=== PATIENT | male | born 1965 | race Hispanic/Latino ===

== ENCOUNTER 2024-06-27 10:48 | Inpatient (IN) | payer MEDICAID, SELFPAY ==
[2024-06-27] MEDS ORDERED: CEFEPIME 2 GM VIAL ONE (11:33)
[2024-06-27] MEDS ORDERED: VANCOMYCIN 1 GM/VIAL ONE (11:33)
[2024-06-27] MEDS ORDERED: NA CHLORIDE 0.9% 0 ML ONE (11:34)
[2024-06-27] MEDS ORDERED: NA CHLORIDE 0.9% 100 ML ONE (11:34)
[2024-06-27 11:54] LABS: Absolute Basophils 0.1 K/uL (0-0.5); Absolute Lymphocytes (CBC) 0.7 K/uL (0.7-4.9); Absolute Monocytes 1.3 K/uL (0.1-1.3); Absolute Neutrophil 27.9 K/uL (1.8-8.0); Basophils % 0.3 % (0-1.3); Hematocrit 41.2 % (39.6-49.0); Hemoglobin 13.1 g/dL (13.6-17.9); Lymphocytes % 2.3 % (15.3-44.8); MCH 31.6 pg (27.0-35.0); MCHC 31.8 g/dL (32.0-36.0); MCV 99.3 fL (80-100); MPV 9.3 fL (7.6-11.3); Monocytes % 4.3 % (3.3-12.3); Neutrophils % 93.1 % (41.7-73.7); Platelets 447 thou/uL (152-406); RBC Red Blood Cell Count 4.15 M/uL (4.33-5.43); Red Cell Distribution Width 13.1 % (12.1-15.2)
[2024-06-27 12:01] LABS: Albumin 2.9 g/dL (3.4-5.0); Albumin/Globulin Ratio 0.6 (1.1-1.8); Bilirubin Total 0.6 mg/dL (0.2-1.0); Globulin 4.9 g/dL (2.3-3.5); Protein, Total 7.8 g/dL (6.4-8.2)
[2024-06-27 12:08] LABS: PT Prothrombin Time 14.5 SECONDS (9.4-12.5); PTT, Activated Partial Thromb 35.2 SECONDS (24.3-36.9); Protime INR 1.3
[2024-06-27] MEDS ORDERED: NA CHLORIDE 0.9% 1,000 ML ONE (12:13)
--- NOTE | 2024-06-27 12:51 | RAD REPORT ---
EXAM DESCRIPTION: RAD - Foot Right 3 View - 06/27/2024 12:42 pm CLINICAL HISTORY: r 1st toe gangrene COMPARISON: No comparisons FINDINGS: There is destructive changes involving the proximal phalanx of the great toe as well as th e base of the distal phalanx. This is most compatible with osteomyelitis. There is significant soft t issue swelling. Small calcaneal spurs. There is also fracture with bony destruction involving the bas e of the proximal phalanx of the second toe.
--- NOTE | 2024-06-27 13:18 | ER ---
Nurse's Notes [facility] Name: Bimal Arreguin Age: 58 yrs Sex: Male : 1965 Arrival Date: 06/27/2024 Time: 10:48 Bed 19 Private MD: Diagnosis: Osteomyelitis of right first toe;Sepsis Presentation: 06/27 11:02 Chief complaint: Right foot wound x 2 months. Coronavirus screen: At this time, the hb client does not indicate any symptoms associated with coronavirus-19. Ebola Screen: No symptoms or risks identified at this time. Initial Sepsis Screen: Does the patient meet any 2 criteria? No. Patient's initial sepsis screen is negative. Does the patient have a suspected source of infection? No. Patient's initial sepsis screen is negative. Risk Assessment: Do you want to hurt yourself or someone else? Patient reports no desire to harm self or others. Onset of symptoms was April 2024. 11:02 Method Of Arrival: Ambulatory hb 11:02 Acuity: JULIAN 2 hb Triage Assessment: 11:21 General: Appears in no apparent distress. Behavior is calm, cooperative. Pain: Pain hb currently is 8 out of 10 on a pain scale. Neuro: Level of Consciousness is awake, alert, obeys commands, Oriented to person, place, time, situation. Cardiovascular: Patient's skin is warm and dry. Respiratory: Respiratory effort is even, unlabored, Respiratory pattern is regular, symmetrical. Derm: Large unstageable wound to right foot and right great toe with area of black extending from mid foot to toe. Very foul odor noted. Historical: - Allergies: 11:20 No Known Allergies; hb - PMHx: 11:20 CVA; Hypertension; hb - Immunization history:: Adult Immunizations up to date. - Infectious Disease History:: Denies. - Social history:: Smoking status: Patient denies any tobacco usage or history of. Screenin:[facility] ED Fall Risk Assessment (Adult) History of falling in the last 3 months, rs5 including since admission No falls in past 3 months (0 pts) Confusion or Disorientation No (0 pts) Intoxicated or Sedated No (0 pts) Impaired Gait Yes (1 pt) Mobility Assist Device Used Yes (1 pt) Altered Elimination No (0 pt) Score/Fall Risk Level 0 - 2 = Low Risk Oriented to surroundings, Maintained a safe environment. Abuse screen: Denies threats or abuse. Nutritional screening: No deficits noted. Tuberculosis screening: No symptoms or risk factors identified. Assessment: 11:01 General: Appears in no apparent distress. uncomfortable, Behavior is calm, cooperative. rs5 Pain: Complains of pain in right toe Pain currently is 3 out of 10 on a pain scale. Quality of pain is described as aching, Is continuous. 11:01 Neuro: Level of Consciousness is awake, alert, obeys commands, Oriented to person, rs5 place, time, situation. Cardiovascular: Patient's skin is warm and dry. Respiratory: Airway is patent Respiratory effort is even, unlabored, Respiratory pattern is regular, symmetrical. GI: Abdomen is round non-distended, Abd is soft and non tender X 4 quads. : No signs and/or symptoms were reported regarding the genitourinary system. EENT: No signs and/or symptoms were reported regarding the EENT system. Derm: Skin is intact, Skin is pink, warm \T\ dry. Derm: wound noted to right big toe, appears gangrenous. Musculoskeletal: Range of motion: limited in right foot. 12:01 Reassessment: Patient and/or family updated on plan of care and expected duration. Pain rs5 level reassessed. Patient is alert, oriented x 3, equal unlabored respirations, skin warm/dry/pink. 13:10 Reassessment: Patient and/or family updated on plan of care and expected duration. Pain rs5 level reassessed. Patient is alert, oriented x 3, equal unlabored respirations, skin warm/dry/pink. 14:15 Reassessment: No changes from previously documented assessment. rs5 15:10 Reassessment: No changes from previously documented assessment. rs5 16:10 Reassessment: No changes from previously documented assessment. rs5 Vital Signs: 11:02 BP 125 / 104; Pulse 110; Resp 18; Temp 98.4(O); Pulse Ox 100% on R/A; Weight 58.97 kg; hb Height 5 ft. 8 in. ; Pain 8/10; 11:48 BP 137 / 76; Pulse 108; Resp 17; Pulse Ox 98% on R/A; rs5 13:10 BP 133 / 76; Pulse 87; Resp 16; Pulse Ox 97% on R/A; rs5 15:10 BP 127 / 75; Pulse 80; Resp 17; Pulse Ox 98% on R/A; rs5 16:15 BP 130 / 78; Pulse 81; Resp 16; Pulse Ox 99% ; rs5 11:02 Body Mass Index 19.77 (58.97 kg, 172.72 cm) hb 11:02 Pain Scale: Adult hb ED Course: 10:52 Patient arrived in ED. ra3 10:52 Ravin East MD is Attending Physician. rt 11:00 Patient has correct armband on for positive identification. Bed in low position. Call rs5 light in reach. Side rails up X2. 11:02 Noe Damian, RN is Primary Nurse. rs5 11:05 No provider procedures requiring assistance completed. Inserted saline lock: 20 gauge rs5 in right antecubital area, using aseptic technique. Blood collected. Flushed with 10 mL NS. 11:20 Triage completed. hb 11:20 Patient placed. hb 11:40 EKG done, by ED staff, reviewed by Ravin East MD. cc6 12:44 Foot Right 3 View XRAY In Process Unspecified. EDMS 13:12 Stanley Tang MD is Hospitalizing Provider. rt 16:20 Patient admitted, IV remains in place. rs5 Administered Medications: 11:46 Drug: Cefepime IVPB 2 grams IVPB at 200 ml/hr once over 30 mins; (mix in NS 100 mL) rs5 Route: IVPB; Rate: 200 ml/hr; Infused Over: 30 mins; Site: right antecubital; 12:01 Follow up: Response: No adverse reaction rs5 11:48 Drug: vancoMYCIN IVPB 1 grams IVPB once over 2 hrs Route: IVPB; Infused Over: 2 hrs; rs5 Site: right antecubital; 12:30 Follow up: Response: No adverse reaction rs5 12:30 Drug: NS 0.9% IV 1000 ml IV at 1 bolus Per protocol; 1000 mL bolus Route: IV; Rate: 1 rs5 bolus; Site: right antecubital; 13:31 Follow up: Response: No adverse reaction; IV Status: Completed infusion; IV Intake: rs5 1000ml Medication: 11:05 VIS not applicable for this client. rs5 Intake: 13:31 IV: 1000ml; Total: 1000ml. rs5 Outcome: 13:17 Decision to Hospitalize by Provider. rt 16:20 Admitted to rs5 16:20 Admitted to Med/surg rs5 16:20 Condition: stable 16:20 Instructed on the need for admit, Demonstrated understanding of instructions, 16:25 Patient left the ED. hb Signatures: Dispatcher [employer] EDRosemarie Kaba, RN RN Ravin East MD MD rt Noe Damian RN RN rs5 Elda Purcell ra3 Jessica Rashid RN RN cc6 Corrections: (The following items were deleted from the chart) 11:23 11:02 Chief complaint: Left foot wound x 2 months. hb hb 15:11 11:48 BP 106 / 70; Pulse 108bpm; Resp 17bpm; Pulse Ox 98% RA; rs5 rs5 15:11 15:10 BP 110 / 73; Pulse 80bpm; Resp 17bpm; Pulse Ox 98% RA; rs5 rs5 15:11 15:10 BP 148 / 75; Pulse 80bpm; Resp 17bpm; Pulse Ox 98% RA; rs5 rs5 15:11 13:10 BP 142 / 76; Pulse 87bpm; Resp 16bpm; Pulse Ox 97% RA; rs5 rs5
--- NOTE | 2024-06-27 13:18 | EDPHYS ---
Physician Documentation [facility] Name: Bimal Arreguin Age: 58 yrs Sex: Male : 1965 Arrival Date: 06/27/2024 Time: 10:48 Bed 19 Private MD: ED Physician Ravin East HPI: 06/27 11:15 This 58 yrs old Male presents to ER via Unassigned with complaints of Big toe rt prob [id number] and infected. 11:15 Patient presents to the ED with a wound to the right great toe for several months. rt Patient states that since yesterday, has turned black, reports purulent drainage. Denies pain to the area, denies other acute complaints, symptoms are moderate in severity, no other aggravating or alleviating factors.. Historical: - Allergies: 11:20 No Known Allergies; hb - PMHx: 11:20 CVA; Hypertension; hb - Immunization history:: Adult Immunizations up to date. - Infectious Disease History:: Denies. - Social history:: Smoking status: Patient denies any tobacco usage or history of. ROS: 11:15 Constitutional: Negative for fever, chills, and weight loss, Cardiovascular: Negative rt for chest pain, palpitations, and edema, Respiratory: Negative for shortness of breath, cough, wheezing, and pleuritic chest pain, Abdomen/GI: Negative for abdominal pain, nausea, vomiting, diarrhea, and constipation, Psych: Negative for depression, anxiety, suicide ideation, homicidal ideation, and hallucinations, 11:15 MS/extremity: Positive for Wound, purulence, Exam: 11:15 Constitutional: This is a well developed, well nourished patient who is awake, alert, rt and in no acute distress. Head/Face: Normocephalic, atraumatic. Chest/axilla: Normal chest wall appearance and motion. Nontender with no deformity. No lesions are appreciated. Cardiovascular: Regular rate and rhythm with a normal S1 and S2. No gallops, murmurs, or rubs. Normal PMI, no JVD. No pulse deficits. Respiratory: Lungs have equal breath sounds bilaterally, clear to auscultation and percussion. No rales, rhonchi or wheezes noted. No increased work of breathing, no retractions or nasal flaring. Abdomen/GI: Soft, non-tender, with normal bowel sounds. No distension or tympany. No guarding or rebound. No evidence of tenderness throughout. Psych: Awake, alert, with orientation to person, place and time. Behavior, mood, and affect are within normal limits. 11:15 Musculoskeletal/extremity: Dry gangrene with purulent discharge noted to right great toe, there is warmth, erythema more proximal to the midfoot. DP is intact.. 11:42 ECG was reviewed by the Attending Physician. rt Vital Signs: 11:02 BP 125 / 104; Pulse 110; Resp 18; Temp 98.4(O); Pulse Ox 100% on R/A; Weight 58.97 kg; hb Height 5 ft. 8 in. ; Pain 8/10; 11:48 BP 137 / 76; Pulse 108; Resp 17; Pulse Ox 98% on R/A; rs5 13:10 BP 133 / 76; Pulse 87; Resp 16; Pulse Ox 97% on R/A; rs5 15:10 BP 127 / 75; Pulse 80; Resp 17; Pulse Ox 98% on R/A; rs5 16:15 BP 130 / 78; Pulse 81; Resp 16; Pulse Ox 99% ; rs5 11:02 Body Mass Index 19.77 (58.97 kg, 172.72 cm) hb 11:02 Pain Scale: Adult hb MDM: 10:59 Patient medically screened. rt 13:17 Differential Diagnosis Osteomyelitis, sepsis, gangrene, diabetic foot wound. Data rt reviewed: vital signs, nurses notes, lab test result(s), radiologic studies. Consideration of Admission/Observation Patient was admitted/placed on observation. Management of patient was discussed with the following: Hospitalist: Agrees to admit. I considered the following discharge prescriptions or medication management in the emergency department Medications were administered in the Emergency Department. See MAR. Independent interpretation of the following test(s) in the Emergency Department X-Ray: My interpretation is Fracture seen on my interpretation of x-ray images. Care significantly affected by the following chronic conditions: Diabetes, Hypertension. Counseling: I had a detailed discussion with the patient and/or guardian regarding the historical points, exam findings, and any diagnostic results supporting the discharge/admit diagnosis, lab results, radiology results, the need for further work-up and treatment in the hospital. Response to treatment: There is no appreciated change of the patient's symptoms at this time. 06/27 11:07 Order name: Blood Culture Adult (2) rt 06/27 11:07 Order name: CBC with Diff; Complete Time: 13:33 rt 06/27 11:07 Order name: CMP; Complete Time: 12:03 rt 06/27 11:07 Order name: Lactate w/ 2H reflex if indic.; Complete Time: 12:52 rt 06/27 11:07 Order name: Protime (+inr); Complete Time: 12:52 rt 06/27 11:07 Order name: Ptt, Activated; Complete Time: 12:52 rt 06/27 11:58 Order name: CBC Smear Scan; Complete Time: 13:33 EDMS 06/27 14:40 Order name: Basic Metabolic Panel EDMS 06/27 14:40 Order name: Basic Metabolic Panel EDMS 06/27 14:40 Order name: CBC with Automated Diff EDMS 06/27 14:40 Order name: CBC with Automated Diff EDMS 06/27 14:40 Order name: Protime (+INR) EDMS 06/27 14:40 Order name: Protime (+INR) EDMS 06/27 14:40 Order name: PTT, Activated Partial Thromb EDMS 06/27 14:40 Order name: PTT, Activated Partial Thromb EDMS 06/27 11:07 Order name: Foot Right 3 View XRAY; Complete Time: 12:52 rt 06/27 11:07 Order name: EKG; Complete Time: 11:07 rt 06/27 14:40 Order name: CONS Physician Consult EDMS 06/27 11:07 Order name: Accucheck; Complete Time: 11:47 rt 06/27 11:07 Order name: Cardiac monitoring; Complete Time: 11:47 rt 06/27 11:07 Order name: EKG - Nurse/Tech; Complete Time: 11:47 rt 06/27 11:07 Order name: IV Saline Lock - Large Bore; Complete Time: 11:47 rt 06/27 11:07 Order name: Labs collected and sent; Complete Time: 11:47 rt 06/27 11:07 Order name: O2 Per Protocol; Complete Time: 11:47 rt 06/27 11:07 Order name: O2 Sat Monitoring; Complete Time: 11:47 rt 06/27 11:07 Order name: Vital Signs; Complete Time: 11:47 rt EC:42 Rate is 106 beats/min. Rhythm is regular, Sinus tachycardia with No ectopy. QRS [place] is rt Normal. VA interval is normal. QRS interval is normal. QT interval is normal. No Q waves. T waves are Normal. No ST changes noted. Interpreted by me. Administered Medications: 11:46 Drug: Cefepime IVPB 2 grams IVPB at 200 ml/hr once over 30 mins; (mix in NS 100 mL) rs5 Route: IVPB; Rate: 200 ml/hr; Infused Over: 30 mins; Site: right antecubital; 12:01 Follow up: Response: No adverse reaction rs5 11:48 Drug: vancoMYCIN IVPB 1 grams IVPB once over 2 hrs Route: IVPB; Infused Over: 2 hrs; rs5 Site: right antecubital; 12:30 Follow up: Response: No adverse reaction rs5 12:30 Drug: NS 0.9% IV 1000 ml IV at 1 bolus Per protocol; 1000 mL bolus Route: IV; Rate: 1 rs5 bolus; Site: right antecubital; 13:31 Follow up: Response: No adverse reaction; IV Status: Completed infusion; IV Intake: rs5 1000ml Disposition Summary: 06/27/24 13:17 Hospitalization Ordered Notes: Hospitalization Status: Inpatient Admission rt Provider: Stanley Tang rt [facility] rt Condition: Stable rt Problem: new rt Symptoms: are unchanged rt Bed/Room Type: Standard rt Room Assignment: 411(06/27/24 15:16) bd Diagnosis - Osteomyelitis of right first toe rt - Sepsis rt Forms: - Medication Reconciliation Form rt - SBAR form rt - Leadership Thank You Letter rt Critical care time excluding procedures: 13:17 Critical care time: Bedside Care: 30 minutes, Consultation: 5 minutes. Total time: 35 rt minutes Signatures: Dispatcher [employer] EDMS Adela Francis Heather, RN RN Ravin East MD MD rt Noe Damian RN RN rs5 Corrections: (The following items were deleted from the chart) 11:07 11:07 BLOOD CULTURE*+BA.LAB.BRZ ordered. EDMS EDMS 11:07 11:07 CBC+H.LAB.BRZ ordered. EDMS EDMS 11:07 11:07 COMPREHENSIVE METABOLIC PANEL+C.LAB.BRZ ordered. EDMS EDMS 11:07 11:07 LACTATE+C.LAB.BRZ ordered. EDMS EDMS 11:07 PROTIME (+INR)+COAG.LAB.BRZ ordered. EDMS EDMS 11:07 PTT, ACTIVATED+COAG.LAB.BRZ ordered. EDMS EDMS : 11:07 Foot Right 3 View+RAD.RAD.BRZ ordered. EDMS EDMS 15:16 13:17 rt bd
[2024-06-27 13:32] LABS: Blood Morphology Comment NOT SEEN (NOT SEEN); Platelet Estimate ADEQ; White Blood Cell Scan OK (OK)
[2024-06-27] MEDS ORDERED: MORPHINE 2 MG/ML SYR IV PRN (14:34)
[2024-06-27] MEDS ORDERED: ONDANSETRON 4 MG/2 ML VIAL IV PRN (14:34)
[2024-06-27] MEDS: VANCOMYCIN 1 GM in NA CHLORIDE 0.9% 250 ML IVPB SCH (15:00)
[2024-06-27] MEDS: NA CHLORIDE 0.9% 1,000 ML IV SCH (17:12)
[2024-06-27] MEDS: Levofloxacin500mg IV 500 MG/100 ML BAG IV SCH (17:12)
[2024-06-27 17:28] VITALS: BMI 19.8
[2024-06-28] MEDS: VANCOMYCIN 1 GM in NA CHLORIDE 0.9% 250 ML IVPB SCH (06:18)
[2024-06-28 07:48] LABS: Absolute Basophils 0.1 K/uL (0-0.5); Absolute Eosinophils 0.1 K/uL (0-0.5); Absolute Lymphocytes (CBC) 1.6 K/uL (0.7-4.9); Absolute Monocytes 1.7 K/uL (0.1-1.3); Absolute Neutrophil 17.5 K/uL (1.8-8.0); Basophils % 0.4 % (0-1.3); Eosinophils % 0.4 % (0-4.4); Hematocrit 36.2 % (39.6-49.0); Hemoglobin 11.7 g/dL (13.6-17.9); Lymphocytes % 7.7 % (15.3-44.8); MCH 31.7 pg (27.0-35.0); MCHC 32.3 g/dL (32.0-36.0); MCV 98.3 fL (80-100); MPV 9.7 fL (7.6-11.3); Monocytes % 7.9 % (3.3-12.3); Neutrophils % 83.6 % (41.7-73.7); Platelets 399 thou/uL (152-406); RBC Red Blood Cell Count 3.69 M/uL (4.33-5.43); Red Cell Distribution Width 13.1 % (12.1-15.2)
[2024-06-28 07:59] LABS: PT Prothrombin Time 14.6 SECONDS (9.4-12.5); PTT, Activated Partial Thromb 34.1 SECONDS (24.3-36.9); Protime INR 1.31
[2024-06-28 08:08] LABS: Anion Gap 9.6 mEq/L (5.0-15.0); Potassium 3.6 mEq/L (3.5-5.1)
--- NOTE | 2024-06-28 11:56 | P.HP ---
Certification for Inpatient Patient admitted to: Inpatient With expected LOS: >2 Midnights Patient will require the following post-hospital care: Home Health Services Practitioner: I am a practitioner with admitting privileges, knowledge of patient current condition, hospital course, and medical plan of care. Services: Services provided to patient in accordance with Admission requirements found in Title 42 Section 412.3 of the Code of Federal Regulations Patient History Date of Service: 06/27/24 Reason for admission: Right great toe gangrene History of Present Illness: Patient is a 58-year-old gentleman who has a history of CVA who came to the hospital with wet gangrene of the right great toe. Patient states has been discolored for the last few days. It actually looks like it has been discolored for quite a while. Patient came to the ER for further evaluation. Patient's right great toe is deeply discolored. Patient's toe is gangrenous and painful. Patient has a foul odor from the right great toe. I believe this needs to be amputated and will get general surgery consultation for further evaluation. At this time, we will continue with IV antibiotic therapy and wound care locally. Patient will be admitted for inpatient hospitalization. Allergies No Known Allergies Allergy (Unverified 06/27/24 16:30) Home Medications: NK [No Home Meds] 06/27/24 - Past Medical/Surgical History Has patient received pneumonia vaccine in the past: Yes -: CVA -: HTN Past Surgical History: Patient denies surgical history - Family History Father Family History: Reviewed- Non-Contributory - Social History Smoking Status: Never smoker Alcohol use: No CD- Drugs: No Caffeine use: No Place of Residence: Home Review of Systems 10-point ROS is otherwise unremarkable Physical Examination - Vital Signs Temperature: 98 F Blood Pressure: 144/73 Pulse: 95 Respirations: 16 Pulse Ox (%): 98 - Physical Exam General: Alert, In no apparent distress, Oriented x3 HEENT: Atraumatic, PERRLA, Mucous membr. moist/pink, EOMI, Sclerae nonicteric Neck: Supple, 2+ carotid pulse no bruit, No LAD, Without JVD or thyroid abnormality Respiratory: Clear to auscultation bilaterally, Normal air movement Cardiovascular: Regular rate/rhythm, Normal S1 S2, No murmurs Gastrointestinal: Normal bowel sounds, Soft and benign, Non-distended, No tenderness Musculoskeletal: No clubbing, No swelling, No tenderness Integumentary: Diabetic ulcer, Other (Gangrene of the right great toe) Neurological: Normal gait, Normal speech, Normal strength at 5/5 x4 extr, Normal tone, Sensation intact, Cranial nerves 3-12 intact, Normal affect Lymphatics: No axilla or inguinal lymphadenopathy - Studies Laboratory Data (last 24 hrs) 06/27/24 06/27/24 06/27/24 11:28 11:28 11:28 WBC 29.90 H Hgb 13.1 L Hct 41.2 Plt Count 447 H PT 14.5 H INR 1.30 APTT 35.2 Sodium 130 L Potassium 4.0 BUN 12 Creatinine 0.94 Glucose 262 H Total Bilirubin 0.6 AST 13 L ALT 16 Alkaline Phosphatase 89 Assessment & Plan - Problems (Diagnosis) (1) Gangrene of toe of right foot Current Visit: Yes Status: Acute (2) History of CVA (cerebrovascular accident) Current Visit: Yes Status: Acute (3) History of hypertension Current Visit: Yes Status: Acute - Plan PLAN: 1. Continue with IV antibiotic 2. Continue with local wound care 3. Surgical consultation for possible amputation 4. Gentle IV hydration 5. Monitor CBC 6. Strict blood sugar monitoring 7. Pain control 8. GI and DVT prophylaxis Discharge Plan: Home Plan to discharge in: Greater than 2 days - Advance Directives Does patient have a Living Will: No Does patient have a Durable POA for Healthcare: No - Code Status/Comfort Care Code Status Assessed: Yes Code Status: Full Code Critical Care: No Time Spent Managing PTS Care (In Minutes): 45
--- NOTE | 2024-06-28 11:59 | P.PN ---
Subjective Date of Service: 06/28/24 Patient continues with odor from the right great toe. No really improvement. Continue with IV antibiotic therapy. Review of Systems 10-point ROS is otherwise unremarkable Physical Examination - Vital Signs Temperature: 98 F Blood Pressure: 144/73 Pulse: 95 Respirations: 16 Pulse Ox (%): 98 - Physical Exam General: Alert, In no apparent distress HEENT: Atraumatic, PERRLA, EOMI Neck: Supple, JVD not distended Respiratory: Clear to auscultation bilaterally, Normal air movement Cardiovascular: Regular rate/rhythm, Normal S1 S2 Gastrointestinal: Normal bowel sounds, No tenderness Musculoskeletal: No tenderness Integumentary: No rashes Neurological: Normal speech, Normal tone, Normal affect Lymphatics: No axilla or inguinal lymphadenopathy - Studies Laboratory Data (last 24 hrs) 06/27/24 06/27/24 11:28 11:28 PT 14.5 H INR 1.30 APTT 35.2 Sodium 130 L Potassium 4.0 BUN 12 Creatinine 0.94 Glucose 262 H Total Bilirubin 0.6 AST 13 L ALT 16 Alkaline Phosphatase 89 Medications List Reviewed: Yes Assessment & Plan - Problems (Diagnosis) (1) Gangrene of toe of right foot Current Visit: Yes Status: Acute (2) History of CVA (cerebrovascular accident) Current Visit: Yes Status: Acute (3) History of hypertension Current Visit: Yes Status: Acute - Plan PLAN: Continue with plan of care as mentioned below: 1. Continue with IV antibiotic 2. Continue with local wound care 3. Surgical consultation for possible amputation; n.p.o. for a.m. intervention 4. Gentle IV hydration 5. Monitor CBC 6. Strict blood sugar monitoring 7. Pain control 8. GI and DVT prophylaxis Discharge Plan: Home Plan to discharge in: Greater than 2 days - Advance Directives Does patient have a Living Will: No Does patient have a Durable POA for Healthcare: No - Code Status/Comfort Care Code Status: Full Code Critical Care: No Time Spent Managing PTS Care (In Minutes): 35
--- NOTE | 2024-06-29 08:21 | P.PN ---
Date of Service: 06/29/24 subjective N.p.o. for surgery today. Pain control as needed analgesics, Review of Systems 10-point ROS is otherwise unremarkable Physical Examination - Vital Signs reviewed - Physical Exam General: Alert, In no apparent distress, Oriented x3, afebrile HEENT: Atraumatic, PERRLA, Mucous membr. moist/pink, EOMI, Sclerae nonicteric Neck: Supple, 2+ carotid pulse no bruit, No LAD, Without JVD or thyroid abnormality Respiratory: Clear to auscultation bilaterally, Normal air movement Cardiovascular: Regular rate/rhythm, Normal S1 S2, No murmurs Gastrointestinal: Normal bowel sounds, Soft and benign, Non-distended, No tenderness Musculoskeletal: No clubbing, No swelling, No tenderness Integumentary: Diabetic ulcer, Other (Gangrene of the right great toe) Neurological: Normal gait, Normal speech, Normal strength at 5/5 x4 extr, Normal tone, Sensation intact, Normal affect Lymphatics: No axilla or inguinal lymphadenopathy Assessment & Plan - Problems (Diagnosis) Gangrene of toe of right foot Leukocytosis Current Visit: Yes Status: Acute Hypertensive uncontrolled History of CVA (cerebrovascular accident) Current Visit: Yes Status: Acute History of hypertension Current Visit: Yes Status: Acute - Plan PLAN: 1. Continue with IV antibiotic 2. Continue with local wound care 3. Surgical consultation for possible amputation Dr. Woodson 4. Gentle IV hydration 5. Monitor CBC 6. Strict blood sugar monitoring 7. Pain control 8. GI and DVT prophylaxis 9. As needed antihypertensive Discharge Plan: Home Plan to discharge in: Greater than 2 days - Advance Directives Does patient have a Living Will: No Does patient have a Durable POA for Healthcare: No - Code Status/Comfort Care Code Status Assessed: Yes Code Status: Full Code Critical Care: No Time Spent Managing PTS Care (In Minutes): 35 <Delmy Yoo - Last Filed: 06/29/24 08:15> Patient was seen and examined. Events of the last 24 hours have been noted. Spoke with with NICK regarding patient's clinical picture after evaluating and examining the patient independently. I performed a substantial part of the MDM during this patient's care today. I personally made or approved the documented management plan and acknowledge its risk of complications. I agree with the findings and documentation provided in the NICK's notes. Patient is scheduled to go to the OR today but that was canceled for tomorrow morning. Patient is upset. Did try to explain to him the situation with our anesthesiologists being ill over the weekend. He did understand but he would really want to get the surgery taken care of. Continue with antibiotic at this time. <Stanley Tagn - Last Filed: 06/30/24 04:25>
[2024-06-29] MEDS: METOPROLOL TARTRATE 5 MG/5 ML INJ IV PRN (08:49)
[2024-06-29] MEDS: VANCOMYCIN 1 GM in NA CHLORIDE 0.9% 250 ML IVPB SCH (11:54)
--- NOTE | 2024-06-30 09:06 | RAD REPORT ---
EXAM DESCRIPTION: US - Lower Extremity Artery [facility] - 06/30/2024 8:33 am CLINICAL HISTORY: Gangrenous right toe COMPARISON: None FINDINGS: Color Doppler, grayscale, and spectral analysis was performed. The common femoral, superficial femoral and popliteal arteries demonstrate multiphasic waveforms Monophasic flow is present in the posterior tibial and dorsalis pedis arteries. IMPRESSION: Monophasic waveforms in the dorsalis pedis and posterior tibial arteries consistent with at least a moderate stenosis. The DR[employer] W[employer]INGER, SFA, and popliteal arteries have multiphasic waveforms withou t flow limiting stenosis.
[2024-06-30] MEDS ORDERED: propofoL 200 MG/20 ML VIAL IV ONE (12:04)
[2024-06-30] MEDS ORDERED: FENTANYL CITR 100 MCG/2 ML ONE ×2 (12:04→13:22)
[2024-06-30] MEDS ORDERED: LIDOCAINE 2% MPF 5 ML VIAL ONE (12:04)
[2024-06-30] MEDS ORDERED: MIDAZOLAM HCL 2 MG/2 ML INJ ONE (12:05)
[2024-06-30] MEDS: FAMOTIDINE 20 MG/2 ML VIAL IV ONE (12:11)
--- NOTE | 2024-06-30 12:35 | P.PN ---
Subjective Date of Service: 06/30/24 Chief Complaint: Right great toe gangrene Pt is resting comfortably in bed. He is NPO and waiting for amputation. Continue iv vanc and levaquin. No other complaints. Review of Systems General: Unremarkable Eyes: Unremarkable ENT: Unremarkable Respiratory: Unremarkable Cardiovascular: Unremarkable Gastrointestinal: Unremarkable Genitourinary: Unremarkable Musculoskeletal: Unremarkable Integumentary: Unremarkable Neurological: Unremarkable Lymphatics: Unremarkable Physical Examination - Vital Signs Temperature: 98.0 F Blood Pressure: 163/90 Pulse: 98 Respirations: 15 Pulse Ox (%): 96 - Physical Exam General: Alert, In no apparent distress, Oriented x3 HEENT: Atraumatic, Normocephalic, PERRLA Neck: Supple, 2+ carotid pulse no bruit, JVD not distended Respiratory: Clear to auscultation bilaterally, Normal air movement Cardiovascular: No edema, Normal pulses, Regular rate/rhythm Capillary refill: <2 Seconds Gastrointestinal: Normal bowel sounds, Soft and benign, Non-distended Musculoskeletal: No clubbing, No swelling, No contractures Integumentary: No rashes, No breakdown, Skin lesion Neurological: Normal gait, Normal speech, Normal strength at 5/5 x4 extr, Normal tone, Sensation intact Lymphatics: No axilla or inguinal lymphadenopathy - Studies Medications List Reviewed: Yes Assessment And Plan - Plan Right foot gangrene: Will continue iv vanc and levaquin. Will f/u wound cx. Pt is NPO for amputation. Foot x-ray shows destructive changes involving the proximal phalanx of the great toe as well as the base of the distal phalanx. This is most compatible with osteomyelitis. Dr. Woodson is following. Htn: Will continue home med GI ppx: protonix DVT ppx: SCD Code: full Dispo: Pending hospital course
[2024-06-30] MEDS ORDERED: Phenylephrine HCl 10 MG/ML 1 ML VIAL ONE (13:15)
[2024-06-30] MEDS ORDERED: NS 0.9% VIAL 10 ML ONE ×2 (13:15→13:16)
[2024-06-30] MEDS ORDERED: ONDANSETRON 4 MG/2 ML VIAL ONE (13:50)
[2024-06-30] MEDS ORDERED: dexAMETHasone 4 MG/ML VIAL ONE (13:51)
--- NOTE | 2024-06-30 13:56 | EKG ---
Test Date: 2024-06-27 Test Time: 11:33:35 [place]: ROSA MEASUREMENT RESULTS: Intervals: Rate: 106 NM: 120 QRSD: 86 QT: 316 QTc: 419 [place]: P: 146 NM: 120 QRS: 142 T: 133 INTERPRETIVE STATEMENTS: Sinus tachycardia Abnormal ECG No previous ECG available for comparison Electronically Signed On 06-30-24 13:48:26 CDT by Rigo Hudson
[2024-06-30 14:07] VITALS: O2SAT 100
--- NOTE | 2024-06-30 14:07 | P.OP ---
Preoperative diagnosis: Gangrene of the right great toe Postoperative diagnosis: The same Primary procedure: Amputation of right great toe Anesthesia: General Estimated blood loss: Less than 10 cc Operative Technique: Patient brought the operating room and placed supine on the table. After the induction of adequate anesthesia, the area of the right foot was prepped with a DuraPrep solution, he was then draped in the usual aseptic manner. Attention was turned towards his right great toe. There was a strong order of necrotic flesh coming from it despite being prepped. We cut off the dark and black portion this brought us down through the skin and right through the distal phalangeal joint. The proximal phalanx itself was also shattered and showed signs of obvious infection and necrosis inside. This piece of bone fra gment was then dissected free from the surrounding area taking care not to damage clean viable tissue. It was necessary to make an incision on the dorsum of the toe skin to fully remove the proximal fragment of necrotic bone. The wound was inspected. A piece of necrotic joint capsule was also a size from the surrounding area. Having fully debrided the area, we were now able to flap the tissue together in such a way as to get a closure without any pressure on the skin area. The skin was approximated using 2-0 nylon just to hold it loosely together. At this point a Xeroform gauze was placed over the wound, and a sterile dressing applied. Complications: None Transferred to: Recovery Room Condition: Good
--- NOTE | 2024-06-30 14:21 | P.HP ---
Date of Service: 06/30/24 PC: I was asked to see this gentleman in regards to gangrene of his right great toe. HPC: This patient, presented to the emergency room with pain and discomfort as well as foul-smelling drainage coming from his right great toe. Says this been going on for the last couple of weeks. Not sure how it happened. 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 No chest pain or palpitations. Denies any urinary complaints O/E: Stable HEENT: Not jaundiced Chest: Chest movement equal bilaterally Abd: Soft [place]: Gangrene of the right great toe [actual phalanx]. Data: Negative Impression: Gangrene with probably underlying osteomyelitis of his right great toe Plan: I have spoken to the patient at length. We will try to get him to the operating room for an amputation of his right great toe. I saw him on Sunday. However I decided 1 more day of antibiotics. He will go tomorrow morning. He will be made n.p.o. at midnight. The risks of this procedure have been discussed with the patient. The possibility of bleeding, infection, need for further surgeries and procedures was discussed. The possible need for more operations in the future, revision of his scar, including higher amputation were explained. He understands and wants to proceed.
[2024-06-30] MEDS: VANCOMYCIN 1 GM in NA CHLORIDE 0.9% 250 ML IVPB SCH (21:14)
[2024-07-01 05:46] LABS: Absolute Basophils 0.1 K/uL (0-0.5); Absolute Lymphocytes (CBC) 2.1 K/uL (0.7-4.9); Absolute Monocytes 1.2 K/uL (0.1-1.3); Absolute Neutrophil 12.8 K/uL (1.8-8.0); Basophils % 0.6 % (0-1.3); Eosinophils % 0.1 % (0-4.4); Hematocrit 36.7 % (39.6-49.0); Hemoglobin 12.4 g/dL (13.6-17.9); Lymphocytes % 13.2 % (15.3-44.8); MCH 32.4 pg (27.0-35.0); MCHC 33.7 g/dL (32.0-36.0); MCV 96.1 fL (80-100); MPV 9.4 fL (7.6-11.3); Monocytes % 7.5 % (3.3-12.3); Neutrophils % 78.6 % (41.7-73.7); Platelets 491 thou/uL (152-406); RBC Red Blood Cell Count 3.81 M/uL (4.33-5.43); Red Cell Distribution Width 12.6 % (12.1-15.2)
[2024-07-01] MEDS: METOPROLOL XL 25 MG TAB PO SCH (10:38)
[2024-07-01] MEDS: CEFTRIAXONE 2,000 MG in NA CHLORIDE 0.9% 100 ML IV SCH (12:44)
[2024-07-01] MEDS: HYDROCODONE/APAP 5/325 MG TAB PO PRN (14:57)
--- NOTE | 2024-07-01 15:02 | P.PN ---
Subjective Date of Service: 07/01/24 Chief Complaint: Right great toe gangrene Pt is resting comfortably in bed. He is doing well post-op. s/p amputation of the right great toe. POD #1. Continue iv vanc and levaquin. No other complaints. Review of Systems General: Unremarkable Eyes: Unremarkable ENT: Unremarkable Respiratory: Unremarkable Cardiovascular: Unremarkable Gastrointestinal: Unremarkable Genitourinary: Unremarkable Musculoskeletal: Unremarkable Integumentary: Unremarkable Neurological: Unremarkable Lymphatics: Unremarkable Physical Examination - Vital Signs Temperature: 97.3 F Blood Pressure: 155/87 Pulse: 83 Respirations: 18 Pulse Ox (%): 99 - Physical Exam General: Alert, In no apparent distress, Oriented x3 HEENT: Atraumatic, Normocephalic, PERRLA Neck: Supple, 2+ carotid pulse no bruit, JVD not distended Respiratory: Clear to auscultation bilaterally, Normal air movement, Diminished Cardiovascular: No edema, Normal pulses, Regular rate/rhythm, Normal S1 S2 Capillary refill: <2 Seconds Gastrointestinal: Normal bowel sounds, Soft and benign, Non-distended Musculoskeletal: No clubbing, No swelling, No contractures, Other (right great toe amputation) Integumentary: No rashes, No breakdown, No significant lesion Neurological: Normal gait, Normal speech, Normal strength at 5/5 x4 extr, Normal tone, Sensation intact Lymphatics: No axilla or inguinal lymphadenopathy - Studies Microbiology Data (last 24 hrs): 06/27/24 11:47 Blood - Blood Blood Culture Gram Stain - Final 06/27/24 11:28 Blood - Blood Anaerobic Blood Culture - Final 06/27/24 11:28 Blood - Blood Gram Stain - Final Medications List Reviewed: Yes Assessment And Plan - Plan Right foot gangrene: Will continue iv rocephin. Off iv vanc and levaquin. Will f/u wound cx. Pt is doing well s/p amputation. POD #1. Foot x-ray shows destructive changes involving the proximal phalanx of the great toe as well as the base of the distal phalanx. This is most compatible with osteomyelitis. Dr. Woodson is following. Htn: Will continue home med Hyponatremia: Na is 131. Will continue IVF and monitor Na level. GI ppx: protonix DVT ppx: SCD Code: full Dispo: Pending hospital course
--- NOTE | 2024-07-02 13:44 | P.DS ---
Admission Date: 06/27/24 Discharge Date: 07/02/24 Disposition: ROUTINE DISCHARGE Discharge Condition: GOOD Reason for Admission: Right great toe gangrene Brief History of Present Illness: Patient is a 58-year-old gentleman who has a history of CVA who came to the hospital with wet gangrene of the right great toe. Patient states has been discolored for the last few days. It actually looks like it has been discolored for quite a while. Patient came to the ER for further evaluation. Patient's right great toe is deeply discolored. Patient's toe is gangrenous and painful. Patient has a foul odor from the right great toe. I believe this needs to be amputated and will get general surgery consultation for further evaluation. At this time, we will continue with IV antibiotic therapy and wound care locally. Patient will be admitted for inpatient hospitalization. Hospital Course: Patient is a 58yo male with past medical history of CVA who presented with wet gangrene of the right great toe. We admitted pt and gave iv vanc and levaquin. Foot x-ray shows destructive changes involving the proximal phalanx of the great toe as well as the base of the distal phalanx. This is most compatible with os teomyelitis. Dr. Woodson, Gen surgeon, took pt to the OR for amputation. Pt did well post-op. Blood cx grew Beta hemolytic strep. We placed midline and advised pt to take rocephin 2gm iv daily for 8 days. He will come to the ER for iv rocephin infusion. We monitored electrolytes and taught him how to do dressing changes prior to discharge. Pt was in NAD prior to discharge. Vital Signs/Physical Exam: Temp Pulse Resp BP Pulse Ox 97.4 F 82 16 153/83 H 100 07/02/24 12:00 07/02/24 12:00 07/02/24 12:00 07/02/24 12:00 07/02/24 12:00 Laboratory Data at Discharge: WBC 16.20 thou/uL (4.3-10.9) H 07/01/24 04:35 Hgb 12.4 g/dL (13.6-17.9) L 07/01/24 04:35 Hct 36.7 % (39.6-49.0) L 07/01/24 04:35 Plt Count 491 thou/uL (152-406) H 07/01/24 04:35 PT 14.6 SECONDS (9.4-12.5) H 06/28/24 07:00 INR 1.31 06/28/24 07:00 APTT 34.1 SECONDS (24.3-36.9) 06/28/24 07:00 Sodium 131 mEq/L (136-145) L 07/01/24 04:35 Potassium 4.0 mEq/L (3.5-5.1) 07/01/24 04:35 BUN 8 mg/dL (7-18) 07/01/24 04:35 Creatinine 0.42 mg/dL (0.70-1.30) L 07/01/24 04:35 Glucose 206 mg/dL (74-106) H 07/01/24 04:35 Total Bilirubin 0.6 mg/dL (0.2-1.0) 06/27/24 11:28 AST 13 U/L (15-37) L 06/27/24 11:28 ALT 16 U/L (16-61) 06/27/24 11:28 Alkaline Phosphatase 89 U/L (45-117) 06/27/24 11:28 Home Medications: Amlodipine [Norvasc*] 5 mg PO DAILY 60 Days #60 tab 07/02/24 Metoprolol Succinate [Toprol Xl*] 25 mg PO DAILY 30 Days #60 tab 07/02/24 New Medications: Amlodipine [Norvasc*] 5 mg PO DAILY 60 Days #60 tab Metoprolol Succinate [Toprol Xl*] 25 mg PO DAILY 30 Days #60 tab Physician Discharge Instructions: Continue ad sandra activity as tolerated. Take Rocephin 2gm iv daily for 8 days. Continue other home meds. Follow up with PCP within 2 weeks. Diet: AHA Activity: Ad sandra Followup: NONE,NONE [Primary Care Provider] -
[2024-07-02] MEDS: Mupirocin NASAL 2 APPL/1 GM TUBE NAS SCH (20:10)
[2024-07-03 07:16] LABS: Absolute Basophils 0.1 K/uL (0-0.5); Absolute Eosinophils 0.1 K/uL (0-0.5); Absolute Lymphocytes (CBC) 2.1 K/uL (0.7-4.9); Absolute Monocytes 0.9 K/uL (0.1-1.3); Absolute Neutrophil 8.1 K/uL (1.8-8.0); Basophils % 0.8 % (0-1.3); Eosinophils % 1.3 % (0-4.4); Hemoglobin 12.1 g/dL (13.6-17.9); Lymphocytes % 18.6 % (15.3-44.8); MCH 31.9 pg (27.0-35.0); MCHC 32.8 g/dL (32.0-36.0); MCV 97.3 fL (80-100); MPV 9.4 fL (7.6-11.3); Monocytes % 7.7 % (3.3-12.3); Neutrophils % 71.6 % (41.7-73.7); Platelets 487 thou/uL (152-406); RBC Red Blood Cell Count 3.81 M/uL (4.33-5.43); Red Cell Distribution Width 12.9 % (12.1-15.2)
[2024-07-03 07:31] LABS: Anion Gap 7.8 mEq/L (5.0-15.0); Potassium 3.8 mEq/L (3.5-5.1)
[2024-07-03 13:19] VITALS: BP 132/71; TEMP 96.6
--- NOTE | 2024-07-03 14:08 | P.PN ---
Subjective Date of Service: 07/02/24 Chief Complaint: Right great toe gangrene Pt is resting comfortably in bed. He is doing well post-op. s/p amputation of the right great toe. POD #2. Continue iv vanc and levaquin. No other complaints. Review of Systems General: Unremarkable Eyes: Unremarkable ENT: Unremarkable Respiratory: Unremarkable Cardiovascular: Unremarkable Gastrointestinal: Unremarkable Genitourinary: Unremarkable Musculoskeletal: Other (right great toe amputation) Integumentary: Unremarkable Neurological: Unremarkable Lymphatics: Unremarkable Physical Examination - Vital Signs Temperature: 96.6 F Blood Pressure: 132/71 Pulse: 78 Respirations: 18 Pulse Ox (%): 99 - Physical Exam General: Alert, In no apparent distress, Oriented x3 HEENT: Atraumatic, Normocephalic, PERRLA Neck: Supple, 2+ carotid pulse no bruit, JVD not distended Respiratory: Clear to auscultation bilaterally, Normal air movement Cardiovascular: No edema, Normal pulses, Regular rate/rhythm Capillary refill: <2 Seconds Gastrointestinal: Normal bowel sounds, Soft and benign, Non-distended Musculoskeletal: No clubbing, No swelling, No contractures, Other (right great toe amputation) Integumentary: No rashes, No breakdown, No significant lesion Neurological: Normal gait, Normal speech, Normal strength at 5/5 x4 extr Lymphatics: No axilla or inguinal lymphadenopathy - Studies Microbiology Data (last 24 hrs): 06/27/24 11:28 Blood - Blood Aerobic Blood Culture - Final No growth in 5 days. 06/27/24 11:28 Blood - Blood Anaerobic Blood Culture - Final 06/27/24 11:28 Blood - Blood Gram Stain - Final 06/27/24 11:47 Blood - Blood Aerobic Blood Culture - Final 06/27/24 11:47 Blood - Blood Blood Culture Gram Stain - Final 06/27/24 11:47 Blood - Blood Anaerobic Blood Culture - Final No growth in 5 days. Medications List Reviewed: Yes Assessment And Plan - Plan Right foot gangrene: Will continue iv rocephin. Off iv vanc and levaquin. Will f/u wound cx. Pt is doing well s/p amputation. POD #2. Foot x-ray shows destructive changes involving the proximal phalanx of the great toe as well as the base of the distal phalanx. This is most compatible with osteomyelitis. Dr. Woodson is following. Htn: Will continue home med Hyponatremia: Na is 131. Will continue IVF and monitor Na level. GI ppx: protonix DVT ppx: SCD Code: full Dispo: Pending hospital course
--- NOTE | 2024-07-03 14:09 | P.DS ---
Admission Date: 06/27/24 Discharge Date: 07/03/24 Disposition: ROUTINE DISCHARGE Discharge Condition: GOOD Reason for Admission: Right great toe gangrene Brief History of Present Illness: Patient is a 58-year-old gentleman who has a history of CVA who came to the hospital with wet gangrene of the right great toe. Patient states has been discolored for the last few days. It actually looks like it has been discolored for quite a while. Patient came to the ER for further evaluation. Patient's right great toe is deeply discolored. Patient's toe is gangrenous and painful. Patient has a foul odor from the right great toe. I believe this needs to be amputated and will get general surgery consultation for further evaluation. At this time, we will continue with IV antibiotic therapy and wound care locally. Patient will be admitted for inpatient hospitalization. Hospital Course: Patient is a 58yo male with past medical history of CVA who presented with wet gangrene of the right great toe. We admitted pt and gave iv vanc and levaquin. Foot x-ray shows destructive changes involving the proximal phalanx of the great toe as well as the base of the distal phalanx. This is most compatible with os teomyelitis. Dr. Woodson, Gen surgeon, took pt to the OR for amputation. Pt did well post-op. Blood cx grew Beta hemolytic strep. We placed midline and advised pt to take rocephin 2gm iv daily for 7 days. He will come to the ER for iv rocephin infusion for 1 more week. We monitored electrolytes and taught him how to do dressing changes prior to discharge. Pt was in NAD prior to discharge. Vital Signs/Physical Exam: Temp Pulse Resp BP Pulse Ox 96.6 F L 78 18 132/71 99 07/03/24 14:08 07/03/24 14:08 07/03/24 14:08 07/03/24 14:08 07/03/24 14:08 Laboratory Data at Discharge: WBC 11.30 thou/uL (4.3-10.9) H 07/03/24 05:52 Hgb 12.1 g/dL (13.6-17.9) L 07/03/24 05:52 Hct 37.0 % (39.6-49.0) L 07/03/24 05:52 Plt Count 487 thou/uL (152-406) H 07/03/24 05:52 PT 14.6 SECONDS (9.4-12.5) H 06/28/24 07:00 INR 1.31 06/28/24 07:00 APTT 34.1 SECONDS (24.3-36.9) 06/28/24 07:00 Sodium 134 mEq/L (136-145) L 07/03/24 06:55 Potassium 3.8 mEq/L (3.5-5.1) 07/03/24 06:55 BUN 8 mg/dL (7-18) 07/03/24 06:55 Creatinine 0.40 mg/dL (0.70-1.30) L 07/03/24 06:55 Glucose 200 mg/dL (74-106) H 07/03/24 06:55 Total Bilirubin 0.6 mg/dL (0.2-1.0) 06/27/24 11:28 AST 13 U/L (15-37) L 06/27/24 11:28 ALT 16 U/L (16-61) 06/27/24 11:28 Alkaline Phosphatase 89 U/L (45-117) 06/27/24 11:28 Home Medications: Amlodipine [Norvasc*] 5 mg PO DAILY 60 Days #60 tab 07/02/24 Metoprolol Succinate [Toprol Xl*] 25 mg PO DAILY 30 Days #60 tab 07/02/24 New Medications: Amlodipine [Norvasc*] 5 mg PO DAILY 60 Days #60 tab Metoprolol Succinate [Toprol Xl*] 25 mg PO DAILY 30 Days #60 tab Physician Discharge Instructions: Continue ad sandra activity as tolerated. Take Rocephin 2gm iv daily for 8 days. Continue other home meds. Follow up with PCP within 2 weeks. Outpatient IV antibiotics: Arrive on Sunday07/04/24 at 830am at the main entrance of the hospital for registration for the outpatient IV antibiotics. 9am - daily dose time - will be directed to Same Day Surgery after registration; Sunday (07/05/23) and Sunday (07/06/23) arrive in the Emergency Department at 9am Diet: AHA Activity: Ad sandra Followup: NONE,NONE [Primary Care Provider] -
--- NOTE | 2024-07-03 14:37 | P.PN ---
Date of Service: 07/03/24 S: Patient has no specific complaints today, understands his IV antibiotic regime, and he will need to follow-up at wound care center. Pain is controlled. O: Dressing taken down, wound looks clean. Has some maceration from too much moisture around incision line. Otherwise appears viable. No fluctuance. A: Doing well status post amputation of right great toe P: Patient is going to be discharged. He was instructed on wound care. We were putting Adaptic over his incision, however he does not require that anymore and just a dry dressing bulked up with a walking shoe will suffice. He will be coming to the hospital for daily IV infusions. Should there be any questions about his wounds I told him I can be contacted. He is happy with this arrangement and will most likely see me next Sunday at the wound care clinic.
== END 2024-07-03 15:30 | disposition home or self-care (01) | DRG 854 ==
LOC: ER 10:48 → ERHOLD 14:34 → 4TH 15:21
PROVIDERS: ADMIT Hospitalist; ATTEND Hospitalist
PROC: 0Y6P0Z1 Detachment at Right 1st Toe, High, Open Approach (ICD-10-PCS; principal; 2024-06-30 11:30)
PROC: 02HV33Z Insertion of Infusion Device into Superior Vena Cava, Percutaneous Approach (ICD-10-PCS; 2024-07-02)
DX: A41.9 Sepsis, unspecified organism (principal); E11.52 Type 2 diabetes mellitus with diabetic peripheral angiopathy with gangrene; M86.171 Other acute osteomyelitis, right ankle and foot; E87.1 Hypo-osmolality and hyponatremia; E11.69 Type 2 diabetes mellitus with other specified complication; I10 Essential (primary) hypertension; Z60.2 Problems related to living alone; Z86.73 Personal history of transient ischemic attack (TIA), and cerebral infarction without residual deficits; Z79.899 Other long term (current) drug therapy
CPT/HCPCS: 36415; 80048; 80053; 80202; 82947; 83605; 85025; 85610; 85730; 87040; 87070; 87205; 88305; 88311; 93005; 93926; 96361; 96374; 96375; 99285; A4216; J0692; J0696; J1100; J2001; J2250; J2371; J2405; J2704; J3010; J7030; J7050